=== PATIENT | female | born 1965 | race Caucasian/White ===

== ENCOUNTER 2021-04-28 10:57 | Emergency (ER) | payer SELFPAY ==
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
--- NOTE | 2021-04-28 11:21 | XRR_ITS ---
PROCEDURE INFORMATION: Exam: XR Right Elbow Exam date and time: 04/28/2021 11:21 AM Age: 55 years old Clinical indication: Pain; Elbow; Right; Additional info: Elbow pain TECHNIQUE: Imaging protocol: XR Right elbow. Views: 1 or 2 views. COMPARISON: CR (UP EXM, ) 04/28/2021 12:05 PM FINDINGS: Bones/joints: No radiographic evidence of acute fracture or dislocation. Alignment anatomic. Joint spaces preserved. No definite effusion. Soft tissues: Mild soft tissue swelling. XR/XR elbow RT 2V [id number] IMPRESSION: No acute osseous abnormality.
--- NOTE | 2021-04-28 11:21 | XRR_ITS ---
PROCEDURE INFORMATION: Exam: XR Chest Exam date and time: 04/28/2021 11:21 AM Age: 55 years old Clinical indication: Pain; Chest pressure; Additional info: Chest pain TECHNIQUE: Imaging protocol: XR of the chest. Views: 2 views. COMPARISON: No relevant prior studies available. FINDINGS: Lungs: Streaky opacities at the lung bases, likely secondary to atelectasis and/or scarring. No consolidation. Pleural spaces: Unremarkable. No pleural effusion. No pneumothorax. Heart/Mediastinum: Unremarkable. No cardiomegaly. Bones/joints: No acute osseous abnormality. Mild degenerative changes. XR/XR chest 2V* [id number] IMPRESSION: No acute radiographic findings.
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
--- NOTE | 2021-04-28 11:21 | ECG_ITS ---
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 Measurements Intervals [place] Rate: 75 P: 67 [place]: 133 QRS: 38 QRSD: 113 T: 40 QT: 405 QTc: 453 Interpretive Statements SINUS RHYTHM MODERATE INTRAVENTRICULAR CONDUCTION DELAY [110+ ms QRS DURATION] No previous ECG available for comparison Electronically Signed On 04-28-2021 20:08:55 VAT CLEANER by Lorenzo Mcclendon M.D. [id number]
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
[2021-04-28 13:12] VITALS: BP 130/89; PULSE 74; O2SAT 96
[2021-04-28 14:09] LABS: Basophils % 0.5 %; Eosinophils # 0.1 10^3/uL (0.0-0.8); Eosinophils % 1.9 %; Hematocrit 40.4 % (37.0-47.0); Hemoglobin 13.5 g/dL (11.5-15.3); Lymphocytes # 1.6 10^3/uL (0.8-4.8); Mean Corpuscular HGB Conc 33.4 g/dL (30.0-36.0); Mean Corpuscular Hemoglobin 30.3 pg (28.0-34.0); Mean Corpuscular Volume 90.6 fl (81-99); Mean Platelet Volume 9.5 fL (7.4-10.4); Monocytes # 0.6 10^3/uL (0.2-0.9); Monocytes % 9.3 %; Neutrophils # 3.94 10^3/uL (1.8-7.7); Nucleated Red Blood Cells % 0 %; Platelet Count 246 10^3/cmm (130-400); Red Blood Count 4.46 10^6/uL (4.1-5.3); Red Cell Distribution Width 13.4 % (12.1-15.1); White Blood Count 6.3 10^3/uL (4.0-10.0)
[2021-04-28] MEDS: acetaminophen-codeine 300-30mg Tablet 1 TAB PO (14:11)
[2021-04-28 14:51] LABS: Blood Urea Nitrogen 12 mg/dL (6-20); Calcium 8.6 mg/dL (8.5-10.5); Carbon Dioxide 24 mmol/L (22-29); Chloride 105 mmol/L (98-107); Glomerular Filtration Rate 74.5 mL/min (90-130); Glucose 80 mg/dL (65-115); Osmolality Calculated 293 mOsm/kg (285-295); Sodium 142 mmol/L (136-145)
[2021-04-28 14:53] LABS: Acetaminophen < 5.0 ug/mL (10-30); Salicylate < 0.3 mg/dL (3-10)
[2021-04-28] MEDS: ondansetron 4 MG Tablet PO (15:03)
== END 2021-04-28 17:58 | disposition home or self-care (01) ==
PROVIDERS: Emergency Provider Emergency Medicine
DX: S00.83XA Contusion of other part of head, initial encounter (principal); S80.01XA Contusion of right knee, initial encounter; S90.01XA Contusion of right ankle, initial encounter; S50.02XA Contusion of left elbow, initial encounter; S50.12XA Contusion of left forearm, initial encounter; S60.212A Contusion of left wrist, initial encounter; S60.221A Contusion of right hand, initial encounter; S60.211A Contusion of right wrist, initial encounter; S50.11XA Contusion of right forearm, initial encounter; Y04.2XXA Assault by strike against or bumped into by another person, initial encounter
CPT/HCPCS: 70450; 70486; 71046; 72125; 73070; 73090; 73100; 73130; 73560; 73590; 73620; 74176; 80048; 80307; 85025; 93005; 99283; Q0162

== ENCOUNTER → 2022-08-27 14:44 | Outpatient (BNVA) | payer MEDICARE, MEDICAID, SELFPAY | PROVIDERS: PCP Nurse Practitioner Family; Visit Provider Nurse Practitioner Family | DX: F19.11 Other psychoactive substance abuse, in remission (principal); R35.0 Frequency of micturition; R53.83 Other fatigue; I11.0 Hypertensive heart disease with heart failure; I50.9 Heart failure, unspecified; Z79.891 Long term (current) use of opiate analgesic | CPT/HCPCS: 80053; 80061; 80307; 81000; 83880; 85025 ==

== ENCOUNTER → 2022-09-24 10:33 | Outpatient (BNVA) | payer MEDICARE, MEDICAID, SELFPAY | PROVIDERS: PCP Nurse Practitioner Family; Referring Provider Registered Nurse; Visit Provider Specialist | DX: G25.0 Essential tremor (principal); G43.711 Chronic migraine without aura, intractable, with status migrainosus; R00.0 Tachycardia, unspecified; F41.9 Anxiety disorder, unspecified | CPT/HCPCS: 99204 ==

== ENCOUNTER → 2022-10-03 13:45 | Outpatient (BNVA) | payer MEDICARE, MEDICAID, SELFPAY | PROVIDERS: PCP Nurse Practitioner Family; Visit Provider Nurse Practitioner Family | DX: R10.9 Unspecified abdominal pain (principal); G43.711 Chronic migraine without aura, intractable, with status migrainosus; I10 Essential (primary) hypertension; L03.90 Cellulitis, unspecified | CPT/HCPCS: 81000 ==

== ENCOUNTER → 2022-11-24 14:42 | Outpatient (BNVA) | payer MEDICARE, SELFPAY | PROVIDERS: PCP Nurse Practitioner Family; Visit Provider Internal Medicine Cardiovascular Disease | DX: I11.0 Hypertensive heart disease with heart failure (principal); I50.9 Heart failure, unspecified; E78.5 Hyperlipidemia, unspecified; I47.1 Supraventricular tachycardia; R06.02 Shortness of breath | CPT/HCPCS: 80048; 83880; 99204 ==

== ENCOUNTER → 2023-07-02 10:16 | Outpatient (BNVA) | payer MEDICARE, MEDICAID, SELFPAY | PROVIDERS: PCP Nurse Practitioner Family; Visit Provider Nurse Practitioner Family | DX: I10 Essential (primary) hypertension (principal); I50.9 Heart failure, unspecified; K86.1 Other chronic pancreatitis; F41.9 Anxiety disorder, unspecified | CPT/HCPCS: 80053; 80061; 81000; 83690; 84439; 84443; 85025 ==

== ENCOUNTER 2023-07-17 13:51 | Outpatient (CLI) | payer MEDICARE, SELFPAY ==
[2023-07-17] MEDS: iohexol 350 mg/mL 500 mL Btl (per mL) IV (14:14)
--- NOTE | 2023-07-17 15:00 | CT_ITS ---
WS: [id number] CT ABDOMEN AND PELVIS WITH AND WITHOUT CONTRAST HISTORY: K86.1 - Other chronic pancreatitis TECHNIQUE: Unenhanced 5 mm axial imaging first performed through the abdomen. Post contrast imaging t hrough the abdomen and pelvis. Oral contrast has not been provided. Sagittal and coronal reformats a re submitted. All CT scans at [facility] use at least one of these dose optimization techniqu es: automated exposure control; mA and/or kV adjustment per patient size (includes targeted exams whe re dose is matched to clinical indication); or iterative reconstruction. CONTRAST: Omnipaque 350; 95 mL IV. DLP: 2006.83 mGy.cm COMPARISON: 04/28/2021 Lung bases are clear. Heart is top normal size. Small hiatal hernia. Normal liver and spleen. Normal portal vein. Normal gallbladder and adrenal glands. Normal pancreas. No pancreatitis. No mass. No pancreatic duct dilatation. No renal obstruction or mass. No perinephric stranding. Too small to characterize hypodensities LEFT kidney. Normal aorta. Retroaortic LEFT renal vein. Stomach is nondistended. No small bowel obstruction. No colitis. Prior appendectomy. Mild distal colo rebeca diverticular burden. No acute diverticulitis. No abscess. No adenopathy or free fluid. Small umbilical hernia. Prior hysterectomy. Mild degenerative changes in the lumbar spine. No fractures. IMPRESSION: 1. Normal pancreas. No evidence for acute pancreatitis or chronic pancreatitis. 2. No acute abdominal or pelvic abnormalities. 3. There is mild diverticulosis in the descending and sigmoid colon. No acute diverticulitis is evid ent at this time. 4. Prior appendectomy and hysterectomy.
== END 2023-07-17 13:52 | disposition home or self-care (01) ==
LOC: RAD 13:52
PROVIDERS: PCP Nurse Practitioner Family; Visit Provider Nurse Practitioner Family
DX: K86.1 Other chronic pancreatitis (principal); K57.30 Diverticulosis of large intestine without perforation or abscess without bleeding; I50.9 Heart failure, unspecified; L98.9 Disorder of the skin and subcutaneous tissue, unspecified
CPT/HCPCS: 74178; Q9967

== ENCOUNTER → 2024-02-02 11:09 | Outpatient (BNVA) | payer MEDICARE, SELFPAY | PROVIDERS: PCP Nurse Practitioner Family; Visit Provider Nurse Practitioner Family | DX: Z98.890 Other specified postprocedural states (principal); E55.9 Vitamin D deficiency, unspecified; F41.9 Anxiety disorder, unspecified; I10 Essential (primary) hypertension; E78.5 Hyperlipidemia, unspecified; L01.00 Impetigo, unspecified; K86.1 Other chronic pancreatitis | CPT/HCPCS: 80053; 80061; 81003; 82306; 82607; 82728; 83036; 83550; 84443; 85025; 87086 ==

== ENCOUNTER → 2024-03-01 15:40 | Outpatient (BNVA) | payer MEDICARE, SELFPAY | PROVIDERS: PCP Nurse Practitioner Family; Visit Provider Nurse Practitioner Family | DX: K52.9 Noninfective gastroenteritis and colitis, unspecified (principal) | CPT/HCPCS: 80053; 82150; 83690; 85025 ==